=== PATIENT | male | born 1990 | race Caucasian/White ===

== ENCOUNTER 2022-05-14 10:48 | Emergency (ER) | payer OTHER, SELFPAY ==
--- NOTE | ~2022-05-14 | XR_ITS ---
EXAMINATION: XR hand LT min 3V INDICATION: Right hand pain TECHNIQUE: Three views of the right hand are obtained. COMPARISON: 05/19/2014 FINDINGS: There is no fracture, dislocation, or subluxation. The bones, soft tissues, and joint space s are normal. IMPRESSION: 1. No acute osseous abnormality. Reviewed, dictated and finalized at location B.
[2022-05-14 11:05] VITALS: BP 125/85; PULSE 86; RESP 18; TEMP 36.7; O2SAT 100
--- NOTE | 2022-05-14 11:27 | ED.UPPEXIN ---
HPI - Extremity Injury (Upper) General Chief Complaint: Extremity Injury, Upper Stated Complaint: Right Knuckle Pain Time Seen by Provider: 05/14/22 11:27 Source: patient and RN notes reviewed Mode of arrival: ambulatory Limitations: no limitations History of Present Illness HPI narrative: 31-year-old male presents with concern for injury to the right hand. He is left-hand dominant. He reports on Friday he injured the second PIP joint area at work by hitting it on a hard object. Reports he had a small abrasion from that. Reports he did the same thing today and hit the same area of the hand against a hard object causing pain, swelling and another abrasion. He reports area is tender to touch. He reports decreased range of motion in the second digit. Patient reports he took ibuprofen MD complaint: injury to: right and hand Related Data Home Medications Medication Instructions Recorded Confirmed No Home Medications 05/14/22 05/14/22 Allergies Allergy/AdvReac Type Severity Reaction Status Date / Time No Known Allergies Allergy Verified 05/14/22 11:22 Review of Systems Review of Systems: CONSTITUTIONAL: Denies malaise, chills, sweats, or fever. SKIN: Denies rash or itching, redness, warmth, swelling. Reports 2 superficial abrasions above the PIP joint of the right hand MUSCULOSKELETAL: Reports pain to the PIP joint of the second digit of the right hand NEUROLOGIC: Denies numbness, weakness All systems reviewed & are unremarkable except as noted in HPI and below PMFSH Comments At time of signature, agree with nursing past medical, surgical, social and family history. There is no relevant family history pertinent to the presenting complaint Exam Narrative: GENERAL: Well-appearing, well-nourished, and in no acute distress. HEAD: Normocephalic EYES: PERRLA, conjunctivae clear NECK: Supple. CHEST: Speaks in full sentences. No respiratory distress. HEART: Regular rate and rhythm. Normal and equal peripheral pulses. EXTREMITIES: Right hand and digits of hand have normal sensation. 4/5 strength with 2nd digit flexion, extension. 5/5 strength with digits 1, 3, 4, 5. Range of motion limited in the second digit. No clubbing, cyanosis. Mild edema noted above the PIP joint of the second digit, tenderness to palpation. Normal digital cascade with flexion of fingers, median, ulnar and radial nerve intact. Normal sensation of each side of finger. Cannot perform 'okay' sign, cannot perform 'cross over finger test of index and middle fingers', cannot fully flex second digit with 'thumbs up' sign. No scissoring. Normal thumb opposition. Good capillary refill and radial pulse. Distal capillary refill less than 3 seconds. Patient is left hand dominant SKIN: Warn, dry, intact, pink. 2 superficial linear abrasions noted above the PIP joint of the second digit of right hand NEURO: Alert and oriented x3. PSYCH: Normal mood and affect Course Course Emergency Course: Patient sent to [facility] for x-ray. Patient agreeable to this plan. Patient is aware of diagnosis, understands and agrees to treatment plan. Anticipatory guidance given. Patient agrees to follow-up as directed and is aware of reasons to seek care at the emergency department. Portions of this record may have been created with voice recognition software Level of Care: [facility] Visit Vital Signs Vital signs: Reviewed. MDM - Extremity Injury (Upper) MDM Narrative Medical decision making narrative: Patients injury and pain is consistent with musculoskeletal etiology. No signs of neurological or vascular compromise on exam. Compartments and tissues are soft without signs of compartment syndrome. Pain is felt appropriate for further evaluation on an outpatient basis. Imaging Data My impression: Images reviewed, interpreted by radiologist, agree, see report. Radiologist's impression: EXAMINATION: XR hand LT min 3V INDICATION: Right hand pain TECHNIQUE: T
--- NOTE | 2022-05-14 11:50 | PC.NURSE ---
1145-- HEEL STIFFENER talking to Sean BANERJEE at [facility], due to us not having xray capability today, and pt agrees to go over to [facility] to complete his care today. report to Kristin OBRIEN, and pt left to drive over there, pt left in stable condition.
--- NOTE | 2022-05-14 12:54 | PC.NURSE ---
12:15- pt arrived to facility from [facility] facility for xray, received report from SK, RN
== END 2022-05-14 13:03 | disposition home or self-care (01) ==
PROVIDERS: Emergency Provider Nurse Practitioner
DX: S69.91XA Unspecified injury of right wrist, hand and finger(s), initial encounter (principal); W22.8XXA Striking against or struck by other objects, initial encounter
CPT/HCPCS: 29130; 73130; 99213; G0463